=== PATIENT | male | born 1950 | race Caucasian/White ===

== ENCOUNTER 2018-09-10 00:21 | Emergency (ER) | payer MEDICARE ==
--- NOTE | 2018-09-10 00:53 | XR ---
EXAM: XR Chest, 2 Views CLINICAL HISTORY: ITS.REASON XR Reason: Chest Pain TECHNIQUE: Frontal and lateral views of the chest. COMPARISON: No relevant prior studies available. FINDINGS: Lungs: Unremarkable. No consolidation. Pleural space: Unremarkable. No pneumothorax. Heart: Unremarkable. No cardiomegaly. Mediastinum: Unremarkable. Bones/joints: No acute fracture. IMPRESSION: No acute findings.
[2018-09-10 00:58] LABS: Basophils # (A) 0.1 k/uL (0-0.2); Basophils % (A) 1 %; Eosinophils # (A) 0.2 k/uL (0-0.7); Eosinophils % (A) 3 %; HCT 48.7 % (39.0-53.0); HGB 16.1 gm/dL (13.0-17.5); Lymphocytes # (A) 1.9 k/uL (1.0-4.8); Lymphocytes % (A) 29 %; MCH 29.1 pg (25.0-35.0); MCHC 33.1 g/dL (31.0-37.0); MCV 87.7 fL (80.0-100.0); Mean Platelet Volume 6.4; Monocytes # (A) 0.5 k/uL (0-1.0); Monocytes % (A) 7 %; Neutrophils # (A) 3.9 k/uL (1.3-7.7); Neutrophils % (A) 58 %; Platelet Count 281 k/uL (150-450); RBC 5.56 m/uL (4.30-5.90); RDW 12.9 % (11.5-15.5); WBC 6.7 k/uL (3.8-10.6)
[2018-09-10 01:05] LABS: Albumin 4.6 g/dL (3.5-5.0); Calcium 10.2 mg/dL (8.4-10.2); Magnesium 1.9 mg/dL (1.6-2.3); Potassium 4.5 mmol/L (3.5-5.1); Total Bilirubin 0.7 mg/dL (0.2-1.3); Total Protein 7.7 g/dL (6.3-8.2)
[2018-09-10 01:09] LABS: INR 0.9 (<1.2); Partial Thromboplastin Time 24.3 sec (22.0-30.0); Prothrombin Time 10.2 sec (9.0-12.0)
--- NOTE | 2018-09-10 01:10 | ED ---
Chest Pain HPI - General Chief Complaint: Chest Pain Stated Complaint: Chest Pain Time Seen by Provider: 09/10/18 00:33 Source: patient, family Mode of arrival: ambulatory Limitations: no limitations - History of Present Illness Initial Comments: Bismark Hwang is a 68-year-old male with a history of hypertension who presents the emergency department today for evaluation of hypertension and chest pain. Patient reports he was previously on antihypertensives but they were taken off the market, he saw his primary care physician earlier this week and was prescribed new antihypertensives. Patient reports he checked his blood pressure 4-6 times daily and has noted that his blood pressure has been all over the place. Patient reports this morning his blood pressure is only in the 90s over 60s, this evening upon laying down he had some vague chest pain which she describes as a heat in his chest 3 out of 10 in intensity, patient checked his blood pressure noted that it was 205/120 at which time he took aspirin and came to the ER for evaluation. Patient reports that while driving to the emergency department his chest pain resolved completely and upon arrival his blood pressure had normalized at which time he thought he should just go home with since he was ordered here decided to get a workup. Patient states he's been having this intermittent vague chest pain for approximately one year he has seen his primary care physician and was referred to cardiology. He reports that he had an evaluation of the [facility] and was scheduled for nuclear stress test however he did not want to pay to $ 500 co-pay so he never have that test done. He does report that he has had a treadmill stress test in the past with no acute findings. Patient has a history of hypertension no history of hyperlipidemia, diabetes or smoking. No family history of early heart disease. No history of known coronary artery disease or vascular disease. - Related Data Allergies Allergy/AdvReac Type Severity Reaction Status Date / Time No Known Allergies Allergy Verified 09/10/18 00:27 Review of Systems ROS Statement: Those systems with pertinent positive or pertinent negative responses have been documented in the HPI. ROS Other: All systems not noted in ROS Statement are negative. EKG Findings - EKG Comments: EKG Findings:: EKG obtained at 12:36 AM, rate is 65 rhythm is sinus there is a leftward axis, there is a right bundle branch block, there are no acute ST elevations or depressions there is no evidence of acute ischemia or infarction. Past Medical History Past Medical History: Hypertension Additional Past Medical History / Comment(s): diverticulitis History of Any Multi-Drug Resistant Organisms: None Reported Past Surgical History: Bariatric Surgery, Hernia Repair, Tonsillectomy Past Psychological History: No Psychological Hx Reported Smoking Status: Never smoker Past Alcohol Use History: None Reported Past Drug Use History: None Reported General Exam - General Exam Comments Initial Comments: Physical Exam GENERAL: Patient is well-developed and well-nourished. Patient is nontoxic and well- hydrated and is in no distress. HENT: Normocephalic, Atraumatic. EYES: PERRL, EOMI PULMONARY: Unlabored respirations. No audible rales rhonchi or wheezing was noted. CARDIOVASCULAR: There is a regular rate and rhythm without any murmurs gallops or rubs. ABDOMEN: Soft and nontender with normal bowel sounds. SKIN: Skin is clear with no lesions or rashes and otherwise unremarkable. : Deferred NEUROLOGIC: Patient is alert and oriented x3. Moving all extremities spontaneously MUSCULOSKELETAL: Normal extremities with adequate strength and full range of motion. No lower extremity swelling or edema. No calf tenderness. PSYCHIATRIC: Normal psychiatric evaluation. Limitations: no limitations Limitations: no limitations Course Vital Signs 09/10/18 09/10/18 09/10/18 00:23 00:35 00:40 Temperature 97.7 F Pulse Rate 63 64 67 Respiratory 20 19 19 Rate Blood Pressure 169/82 141/99 O2 Sat by Pulse 94 L 95 96 Oximetry 09/10/18 09/10/18 09/10/18 01:10 01:30 01:40 Temperature Pulse Rate 61 58 L 57 L Respiratory 14 14 20 Rate Blood Pressure 142/89 142/89 137/93 O2 Sat by Pulse 97 97 96 Oximetry 09/10/18 09/10/18 02:00 02:10 Temperature Pulse Rate 54 L 57 L Respiratory 18 18 Rate Blood Pressure 137/93 130/91 O2 Sat by Pulse 96 95 Oximetry Chest Pain [facility] Patient was seen and evaluated history was obtained from the patient Vital signs were reviewed, patient's blood pressure has improved Patient is chest pain-free Cardiac workup was initiated Heart score 3 for age and hypertension Labs and CXR unremarkable Patient BP remains stable in ER, no overwhelming HTN Results discussed with patient Patient was offered admission to [facility] for further evaluation by cardiology, however given that patient has been experiencing this pain intermittently for 2 years and has close follow up with his PCP he would prefer discharge home All questions pertaining to care were answered Disposition Clinical Impression: Atypical chest pain, HTN (hypertension) Disposition: HOME SELF-CARE Condition: Stable Instructions (If sedation given, give patient instructions): Chest Pain (ED) Is patient prescribed a controlled substance at d/c from ED?: No Referrals: Doc Cordova DO [Primary Care Provider] - 1-2 days Matt Langford MD [STAFF PHYSICIAN] - 1-2 days
[2018-09-10 01:13] LABS: Creatine Kinase 124 U/L (55-170)
[2018-09-10 01:25] LABS: Creatine Kinase MB 1.3 ng/mL (0.0-2.4); Troponin I <0.012 ng/mL (0.000-0.034)
[2018-09-10 02:23] VITALS: BP 136/91; PULSE 61; RESP 19; TEMP 98
== END 2018-09-10 02:19 | disposition home or self-care (01) ==
LOC: EC 00:21
DX: I10 Essential (primary) hypertension (principal); R07.89 Other chest pain; Z98.84 Bariatric surgery status
CPT/HCPCS: 36415; 71046; 80053; 82550; 82553; 83690; 83735; 83880; 84484; 85025; 85610; 85730; 93005; 99285